=== PATIENT | male | born 1975 | race Two or more races ===

== ENCOUNTER → 2016-08-18 | Outpatient (CLI) | payer MEDICARE, MEDICAID ==
[2016-03-09 10:43] VITALS: BP 114/70
[~2016-08-18] MED LIST: IBUP-1060 PO; INDO50CA PO; LIDO700A4 TD; MELO15TA23 PO; OXYC-328 PO; OXYC15TA60 PO; OXYC5TAB PO; TIZA4TAB PO
--- NOTE | 2016-08-18 13:38 | KCIC ---
MRI Lumbar Spine without contrast History: Lumbar radiculopathy, previous surgery, pain worse the last 2-3 weeks, right radiculopathy Technique: Multiplanar, multi sequential noncontrast MR imaging was performed of the lumbar spine. Contrast: None Comparison: November 12, 2015 Findings: Lumbar vertebral body stature and AP alignment are maintained. There is again mild/moderate degenerative disc disease greater on the left at L5-S1, associated endplate edema similar. There is also trace L4-5 endplate edema likely reactive/degenerative in etiology as seen previously. There is mild disc desiccation L4-5 as seen previously. There are posterior annular tears L4-5 and L5-S1, anterior annular tears L3-4 and L4-5. Conus terminates at L1-2. There are some tiny foci of T2 hyperintense signal of the visualized right kidney, difficult to otherwise characterize although statistically likely cysts. L2-L3: Spinal canal and the neural foramina are adequate. L3-L4: There is again negligible bulge. The spinal canal is adequate. Neural foramina are adequate. There is again negligible disc osteophyte complex near the extraforaminal L3 nerve roots without displacement. L4-L5: Spinal canal is adequate. There is again very minimal posterior bulge. There is very mild narrowing of the distal inferior right neural foramen, left neural foramen aerated. Right extraforaminal shallow protrusion is again near the extraforaminal right L4 nerve root without significant displacement. L5-S1: There again has been posterior decompression. Spinal canal is adequate. Disc osteophyte complex contributes to moderate to severe narrowing of the left neural foramen with impingement of the exiting left L5 nerve root, right neural foramen overall adequate. Impression: 1. There is no new significant lumbar spinal stenosis. There is neural foramina compromise as stated greatest on the left at L5-S1 with impingement of the exiting left L5 nerve root. Shallow extraforaminal protrusion on the right at L4-5 is near the extraforaminal right L4 nerve root without displacement. 2. There is degenerative disc disease greatest at L5-S1 and to lesser degree at L4-5, endplate edema greatest at L5-S1 probably reactive/degenerative in etiology. Electronically signed by: Estrada Lewis MD (08/18/2016 1:34 PM)
== END | disposition home or self-care (01) ==
LOC: KCIC MRI 12:12
PROVIDERS: ATTEND Family Medicine
DX: M51.17 Intervertebral disc disorders with radiculopathy, lumbosacral region (principal)
CPT/HCPCS: 72148

== ENCOUNTER → 2017-01-22 | Outpatient (CLI) | payer MEDICARE, MEDICAID ==
[2016-03-09 10:43] VITALS: BP 114/70
[~2017-01-22] MED LIST changes: +OXYC10TA45 PO; +OXYC20TA34 PO; -OXYC5TAB PO; +OXYC5TAB95 PO
--- NOTE | 2017-01-22 14:45 | RAD ---
MRI Lumbar Spine without contrast History: Low back pain, bilateral radiculopathy in the legs greater on the left, previous surgeries. Technique: Multiplanar, multi sequential noncontrast MR imaging was performed of the lumbar spine. Contrast: None Comparison: August 18, 2016 Findings: Lumbar vertebral body stature and AP alignment are preserved. There is again mild to moderate degenerative disc disease at L5-S1. There is L4-5 and L5-S1 endplate edema as seen previously. There is again posterior annular tear L4-5. Conus terminates at L1-2. L2-3: Neural foramina and spinal canal remain adequate. L3-L4: Neural foramina remain adequate. There is again negligible disc osteophyte complex in the extraforaminal regions, no displacement extraforaminal L3 nerve roots. Spinal canal is adequate. L4-L5: There is again minimal posterior bulge. Spinal canal is adequate. There is similar mild narrowing of the distal right inferior neural foramen by bulge/protrusion, again near the proximal extraforaminal right L4 nerve root without displacement. The left neural foramen is adequate. L5-S1: There again has been posterior decompression, spinal canal are adequate. There is again disc osteophyte complex which contributes to moderate to severe narrowing of the left neural foramen with contact exiting left L5 nerve root as seen previously. Right neural foramen is adequate. Impression: 1. Findings are similar comparing with the August 2016 exam. There is no new lumbar spinal stenosis. There is again narrowing of left L5-S1 neural foramen with contact exiting left L5 nerve root. There is degenerative disc disease greatest at L5-S1 and to lesser degree L4-5. L4-5 and L5-S1 endplate edema is similar, likely reactive/degenerative in etiology. Electronically signed by: Estrada Lewis MD (01/22/2017 2:43 PM) [facility]
== END | disposition home or self-care (01) ==
LOC: MRI 11:26
PROVIDERS: ATTEND Neurological Surgery
DX: M51.16 Intervertebral disc disorders with radiculopathy, lumbar region (principal); R60.9 Edema, unspecified
CPT/HCPCS: 72148

== ENCOUNTER 2017-02-04 15:38 | Emergency (ER) | payer MEDICARE, MEDICAID ==
[~2017-02-04] VITALS: Ht 177.8 cm; Wt 68.9 kg
[~2017-02-04 15:38] MED LIST changes: -OXYC10TA45 PO; -OXYC20TA34 PO
[2017-02-04 16:01] VITALS: BP 118/57
--- NOTE | 2017-02-04 16:11 | PHYS DOC ---
Past Medical History Past Medical History: Other Additional Past Medical Histor: Chronic back pain Past Surgical History: Other Additional Past Surgical Histo: back x2, Lt. Ankle x2.Rt. Hand Alcohol Use: None Drug Use: Other Adult General Chief Complaint Chief Complaint: LOWER EXTREMITY SWELLING [facility] HPI Patient is a 41 year old male presents to the emergency department with plan to left lower extremity pain. Patient has a known history of chronic back pain and lower extremity pain. He is in the care of Dr. Owens, neurosurgery as well as his primary care provider, . He states that he was hospitalized for 4 days for his chronic back pain, discharged 5 days ago and has had persistent discomfort in the left lower extremity. He states that he was evaluated today by Dr. Owens and Dr. Leos (Dr. Levi partner) for his complaints of left lower extremity pain. Patient was sent to the emergency Department for evaluation, rule out DVT. Patient states that upon discharge from the hospital he noticed swelling to the bilateral lower extremities. He states that did resolve. He states that he has his chronic pain in the left lower extremity but also has the sensation of "feels like my leg is broken". With the use of cane into the emergency department. He states this is normal ambulation status for him. Review of Systems Review of Systems Constitutional: Denies fever or chills [] Eyes: Denies change in visual acuity, redness, or eye pain [] HENT: Denies nasal congestion or sore throat [] Respiratory: Denies cough or shortness of breath [] Cardiovascular: No additional information not addressed in HPI [] GI: Denies abdominal pain, nausea, vomiting, bloody stools or diarrhea [] : Denies dysuria or hematuria [] Musculoskeletal: acute on chronic LE pain Integument: Denies rash or skin lesions [] Neurologic: Denies headache, focal weakness or sensory changes [] Endocrine: Denies polyuria or polydipsia [] All other systems were reviewed and found to be within normal limits, except as documented in this note. Current Medications Current Medications Current Medications Medications (Trade) Dose Ordered Sig/Armond Start Time Stop Time Status Last Admin Dose Admin Ketorolac Tromethamine (Toradol Im) 60 mg 1X ONCE 02/04/17 16:15 02/04/17 16:16 DC 02/04/17 16:38 60 MG Allergies Allergies Allergies Coded Allergies Type Severity Reaction Last Updated Verified No Known Drug Allergies 02/18/14 No Physical Exam Physical Exam Constitutional: Well developed, well nourished, no acute distress, non-toxic appearance. [] HENT: Normocephalic, atraumatic, bilateral external ears normal, oropharynx moist, no oral exudates, nose normal. [] Eyes: PERRLA, EOMI, conjunctiva normal, no discharge. [] Neck: Normal range of motion, no tenderness, supple, no stridor. [] Cardiovascular:Heart rate regular rhythm, no murmur [] Lungs & Thorax: Bilateral breath sounds clear to auscultation [] Abdomen: Bowel sounds normal, soft, no tenderness, no masses, no pulsatile masses. [] Skin: Warm, dry, no erythema, no rash. [] Back: No tenderness, no CVA tenderness. [] Extremities: Left lower extremity, no swelling, no erythema, no ecchymosis. The calf is supple. Negative Homans sign. He is diffusely tender to palpate, which he relates to his chronic pain. He does have a superficial abrasion at the mid anterior tibia. Neurovascular intact distal. Neurologic: Alert and oriented X 3, normal motor function, normal sensory function, no focal deficits noted. [] Psychologic: Affect normal, judgement normal, mood normal. [] Current Patient Data Vital Signs Vital Signs Date Time Temp Pulse Resp B/P (MAP) Pulse Ox O2 Delivery O2 Flow Rate FiO2 02/04/17 16:01 97.5 85 20 118/57 (77) 96 Room Air 97.5 EKG EKG [] Radiology/Procedures Radiology/Procedures Stop her left lower extremity negative for DVT[] Course & Med Decision Making Course & Med Decision Making Pertinent Labs and Imaging studies reviewed. (See chart for details) [] Dragon Disclaimer Dragon Disclaimer This electronic medical record was generated, in whole or in part, using a voice recognition dictation system. Departure Departure Impression: Primary Impression: Chronic pain Disposition: HOME, SELF-CARE Condition: STABLE Referrals: MAGGIE WEBSTER MD (PCP) Patient Instructions: Chronic Pain, Chronic Pain Management Additional Instructions: Follow-up with your primary care provider for further evaluation of your chronic pain. Please continue chronic pain use medications as prescribed by her primary care provider. Problem Qualifiers Primary Impression: Chronic pain Chronic pain type: other chronic pain Qualified Codes: G89.29 - Other chronic pain PAMELA TAYLOR APRN Feb 04, 2017 16:11
[2017-02-04] MEDS ORDERED: KETOROLAC 60 MG/2 ML INJ. IM ONE (16:15)
--- NOTE | 2017-02-04 16:47 | RAD ---
Left lower extremity venous ultrasound, 02/04/2017 : History: Left leg pain Duplex evaluation including grayscale, color flow and spectral Doppler analysis was performed. The femoral and popliteal veins show no filling defects to suggest DVT. The visualized calf veins are unremarkable. IMPRESSION: There is no sonographic evidence of deep vein thrombosis in the left lower extremity
== END 2017-02-04 16:48 | disposition home or self-care (01) ==
LOC: ER 15:38
DX: G89.29 Other chronic pain (principal); M79.605 Pain in left leg
CPT/HCPCS: 93971; 96372; 99284; J1885

== ENCOUNTER → 2017-03-09 | Outpatient (CLI) | payer MEDICARE, MEDICAID ==
[2017-03-09 11:40] LABS: ADD MAN DIFF? NO
[2017-03-09 11:42] LABS: BASO % 0 % (0-3); EOS # 0.1 x10^3/uL (0.0-0.7); EOS % 1 % (0-3); HEMOGLOBIN 15.5 g/dL (13.0-17.5); LYMPH # 2.1 x10^3/uL (1.0-4.8); LYMPH % 17 % (24-48); MEAN CORPUSCULAR HEMOGLOBIN 32 pg (25-35); MEAN CORPUSCULAR HGB CONC 33 g/dL (31-37); MEAN CORPUSCULAR VOLUME 98 fL (79-100); MONO # 0.7 x10^3/uL (0.0-1.1); MONO % 6 % (0-9); NEUT # 9.5 x10^3uL (1.8-7.7); NEUT % 76 % (31-73); PLATELET COUNT 214 x10^3/uL (140-400); RED BLOOD COUNT 4.79 x10^6/uL (4.30-5.70); RED CELL DISTRIBUTION WIDTH 14.1 % (11.5-14.5); WHITE BLOOD COUNT 12.4 x10^3/uL (4.0-11.0)
[2017-03-09 11:52] LABS: INR 1.1 (0.8-1.1); PARTIAL THROMBOPLASTIN TIME 31 SEC (24-38); PROTHROMBIN TIME PATIENT 13.2 SEC (11.7-14.0)
[2017-03-09 11:58] LABS: ALBUMIN 3.6 g/dL (3.4-5.0); ALK PHOS 88 U/L (46-116); ALT (SGPT) 26 U/L (16-63); ANION GAP 9 (6-14); AST (SGOT) 16 U/L (15-37); BLOOD UREA NITROGEN 16 mg/dL (8-26); BUN/CREATININE RATIO 16 (6-20); CALCIUM 8.9 mg/dL (8.5-10.1); CARBON DIOXIDE 29 mmol/L (21-32); CHLORIDE 104 mmol/L (98-107); GFR 82.8; GLUCOSE 92 mg/dL (70-99); POTASSIUM 4.5 mmol/L (3.5-5.1); SODIUM 142 mmol/L (136-145); TOTAL BILIRUBIN 0.2 mg/dL (0.2-1.0); TOTAL PROTEIN 7.2 g/dL (6.4-8.2)
[2017-03-09 19:20] LABS: MRSA BY PCR Negative (Negative)
== END | disposition home or self-care (01) ==
LOC: SURGPAT 11:08
DX: Z01.812 Encounter for preprocedural laboratory examination (principal); M54.5 Low back pain; Z79.01 Long term (current) use of anticoagulants
CPT/HCPCS: 36415; 80053; 85025; 85610; 85730; 87641

== ENCOUNTER 2017-03-10 06:57 | Day surgery (SDC) | payer MEDICARE, MEDICAID, OTHER ==
[2017-03-10] MEDS ORDERED: ONDANSETRON PF 4 MG/2 ML VIAL. IV (07:00)
[2017-03-10] MEDS ORDERED: LIDOCAINE 1% PF 2 ML VIAL. ID (07:00)
[2017-03-10] MEDS ORDERED: fentaNYL PF VIAL 100 MCG/2 ML VIAL IV (07:00)
[2017-03-10] MEDS ORDERED: PROCHLORPERAZINE 10 MG/2 ML VIAL. IV (07:00)
[2017-03-10] MEDS ORDERED: GELATIN SPONGE SIZE 100. (07:17)
[2017-03-10] MEDS ORDERED: THROMBIN TOPICAL 20,000 UNIT SPRAY.SYRN KIT TP (07:17)
[2017-03-10] MEDS: IV RINGERS,LACTATED 1000ML 1,000 ML IV (07:48)
[2017-03-10] MEDS ORDERED: MINERAL OIL/PETROLATUM,WHITE OPHTH OINT 3.5GM TUBE. (07:58)
[2017-03-10] MEDS ORDERED: LIDOCAINE 2% PF Vial for OR 5 ML VIAL. (07:58)
[2017-03-10] MEDS ORDERED: DEXAMETHASONE SOD PHOS 20 MG/5 ML VIAL. (07:58)
[2017-03-10] MEDS ORDERED: fentaNYL PF VIAL 100 MCG/2 ML VIAL ×2 (07:58→11:16)
[2017-03-10] MEDS ORDERED: PROPOFOL 0 ML IV (07:58)
[2017-03-10] MEDS ORDERED: ONDANSETRON PF 4 MG/2 ML VIAL. (07:58)
[2017-03-10] MEDS ORDERED: ROCURONIUM 50 MG/5 ML VIAL. (07:59)
[2017-03-10] MEDS ORDERED: REMIFENTANIL 2 MG VIAL. IV (07:59)
[2017-03-10] MEDS ORDERED: MIDAZOLAM HCL/PF 2 MG/2 ML VIAL. (07:59)
[2017-03-10] MEDS ORDERED: PROPOFOL 50 ML IV ×2 (08:05→10:28)
[2017-03-10] MEDS ORDERED: GLYCOPYRROLATE 1 MG/5 ML VIAL. (09:19)
[2017-03-10] MEDS ORDERED: ePHEDrine PF IN SALINE 50 MG/5 ML DISP.SYRIN IV (09:19)
[2017-03-10] MEDS: LIDOCAINE 2%/EPI 1:100,000 20 ML VIAL. (09:38)
[2017-03-10] MEDS: BUPIVACAINE 0.5% 50 ML VIAL. (09:38)
[2017-03-10] MEDS: BACITRACIN 50,000 UNIT in IV NORMAL SALINE 1000ML BAG 1,000 ML IRR (09:38)
[2017-03-10] MEDS ORDERED: PHENYLEPHRINE in 0.9% NACL PF 1 MG/10 ML SYRINGE. IV (09:52)
[2017-03-10] MEDS ORDERED: PHENYLEPHRINE 10 MG/ML VIAL. (09:52)
[2017-03-10] MEDS ORDERED: NEOSTIGMINE METHYLSULFATE 5 MG/5 ML SYRINGE. (09:58)
[2017-03-10] MEDS ORDERED: PROPOFOL 20 ML IV (10:28)
[2017-03-10] MEDS: fentaNYL PF VIAL 100 MCG/2 ML VIAL IV ×4 (11:31→11:51)
[2017-03-10] MEDS: MORPHINE SULFATE 2 MG/ML DISP.SYRIN. IV (11:56)
[2017-03-10] MEDS: HYDROmorphone 2 MG/ML VIAL IV ×4 (12:01→12:32)
[2017-03-10] MEDS: oxyCODONE/APAP 5/325 1 TAB TABLET PO (12:23)
[2017-03-10] MEDS ORDERED: DESFLURANE > 120 MINUTES IH (12:32)
== END 2017-03-10 13:44 | disposition home or self-care (01) ==
LOC: OPSVCIP 06:57 → OPS 06:57
DX: M47.26 Other spondylosis with radiculopathy, lumbar region (principal); M48.061 Spinal stenosis, lumbar region without neurogenic claudication; F17.200 Nicotine dependence, unspecified, uncomplicated; Z87.39 Personal history of other diseases of the musculoskeletal system and connective tissue; Z72.0 Tobacco use
CPT/HCPCS: 63047; 76000; 88304; 88311; 97162-GP; 97530-GP; G8978-CJ-GP; G8979-CJ-GP; G8980-CJ-GP; J0690; J1100; J1170; J2250; J2270; J2370; J2405; J2704; J2710; J3010; J3490; J7030; J7120

== ENCOUNTER 2017-03-14 23:09 | Emergency (ER) | payer MEDICARE, MEDICAID ==
[2017-03-14] MEDS: PROMETHAZINE IM 25 MG/ML VIAL IM (23:43)
[2017-03-14] MEDS: HYDROmorphone 2 MG/ML VIAL IM (23:43)
== END 2017-03-15 02:04 | disposition home or self-care (01) ==
LOC: ER 03-15 02:04
DX: M54.5 Low back pain (principal); G89.29 Other chronic pain; F17.210 Nicotine dependence, cigarettes, uncomplicated; Z98.890 Other specified postprocedural states; W18.39XA Other fall on same level, initial encounter; Y93.89 Activity, other specified; Y92.89 Other specified places as the place of occurrence of the external cause; Y99.8 Other external cause status
CPT/HCPCS: 72131; 96372; 99284-25; J1170; J2550

== ENCOUNTER 2018-05-14 14:40 | Emergency (ER) | payer MEDICARE, MEDICAID ==
[~2018-05-14] VITALS: Ht 177.8 cm; Wt 59.9 kg
[~2018-05-14 14:40] MED LIST changes: +CYCL5TAB PO; -INDO50CA PO; +INDO50CA5 PO; -OXYC-328 PO; +OXYC10TA46 PO; -OXYC15TA60 PO; +OXYC15TA61 PO; +OXYC1TAB22 PO; +OXYC20TA34 PO; +OXYC5TAB4 PO; -OXYC5TAB95 PO; +PRED-220 PO; +TIZA4CAP3 PO
[2018-05-14] MEDS ORDERED: HYDROcodone/APAP 5/325MG 1 TAB TABLET PO ONE (15:30)
[2018-05-14 16:30] VITALS: BP 117/77
--- NOTE | 2018-05-14 16:38 | RAD ---
EXAM: Bilateral hips and pelvis, 3 views; sacrum and coccyx, 3 views; thoracic spine, 3 views; lumbar spine, 3 views. HISTORY: Fall. COMPARISON: None. FINDINGS: Pelvis and bilateral hips: A frontal view the pelvis and frog-leg views of both hips are obtained. There is no fracture, dislocation or subluxation. There are left greater than right os acetabuli. There are tiny bone islands. Sacrum and coccyx, 3 views of the sacrum and coccyx are obtained. There is no fracture. The sacroiliac joints are intact. Lumbar spine: 3 views lumbar spine are obtained. There is minimal lumbar levocurvature centered at L4. There is minimal retrolisthesis of L4 and L5. There is degenerative endplate remodeling with disc space narrowing and facet arthropathy at the lumbosacral junction. No fracture is seen. Thoracic spine: 3 views of the thoracic spine are obtained. There is no significant listhesis. The vertebral bodies are normal in height and the disc spaces are preserved. IMPRESSION: 1. No acute osseous finding. 2. Degenerative change at the lumbosacral junction. Electronically signed by: Anita Scott MD (05/14/2018 4:35 PM) [facility]
[2018-05-14] MEDS ORDERED: NAPR-514 PO (16:53)
[2018-05-14] MEDS ORDERED: CYCL10TA2 PO (16:53)
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
== END 2018-05-14 17:06 | disposition home or self-care (01) ==
LOC: ER 14:40
DX: M54.6 Pain in thoracic spine (principal); M54.5 Low back pain; M25.551 Pain in right hip; M25.552 Pain in left hip; G89.11 Acute pain due to trauma; G89.29 Other chronic pain; W13.8XXA Fall from, out of or through other building or structure, initial encounter; Y93.89 Activity, other specified; Y92.89 Other specified places as the place of occurrence of the external cause; Y99.8 Other external cause status
CPT/HCPCS: 72072; 72100; 72220; 73521; 99283